=== PATIENT | female | born 1995 | race Caucasian/White ===

== ENCOUNTER → 2016-07-12 | Outpatient (CLI) | payer BC ==
[~2016-07-12] MED LIST: BCPILLS PO; Biotin PO; MAGIC1 PO; [UNRECOGNIZED DRUG - REMARK]
--- NOTE | 2016-07-12 09:44 | DIAGNOSTIC IMAGING REPORT ---
RENAL ULTRASOUND HISTORY: Pyelonephritis RECURRENT UTI,TUBULO NEPHRITIS COMPARISON: None. FINDINGS: Right kidney: Maximum dimension 10.7 cm. No evidence for hydronephrosis. Normal corticomedullary differentiation and cortical thickness. Left kidney: Maximum dimension 11 cm. No evidence for hydronephrosis. 4 mm nonobstructing lower pole calcification Normal corticomedullary differentiation and cortical thickness. Bladder: No bladder wall thickening. The bilateral ureteral jets were identified. IMPRESSION: 1. 4 mm nonobstructing cortical calcification lower pole left kidney. 2. Otherwise normal study Electronically signed by: Etienne Patel M.D. 07/12/2016 9:43 AM Dictated Date/Time: 07/12/2016 9:40 AM
== END | disposition home or self-care (01) ==
LOC: C.ULTR 09:12
PROVIDERS: ATTEND Family Medicine
DX: N39.0 Urinary tract infection, site not specified (principal); N12 Tubulo-interstitial nephritis, not specified as acute or chronic; N20.0 Calculus of kidney

== ENCOUNTER → 2017-08-21 | Outpatient (CLI) | payer OTHER ==
--- NOTE | 2017-08-21 11:23 | DIAGNOSTIC IMAGING REPORT ---
L-SPINE MIN 4 VIEWS ROUTINE CLINICAL HISTORY: Back pain COMPARISON STUDY: 05/08/2011 FINDINGS: There is thoracolumbar spinal rodding. There are no acute fractures. There is minimal retrolisthesis of L3 on L4, unchanged the prior study. There are mild multilevel degenerative changes. No destructive lesions are evident. There is a thoracolumbar levoscoliosis. There is a bony defect involving the posterior elements at the L5 level. IMPRESSION: 1. Postsurgical changes similar to the preceding study. Levoscoliosis. No acute fractures. Electronically signed by: Nikolas Wang M.D. 08/21/2017 11:22 AM Dictated Date/Time: 08/21/2017 11:20 AM
--- NOTE | 2017-08-21 11:25 | DIAGNOSTIC IMAGING REPORT ---
THORACIC SPINE 3 VIEWS ROUTINE CLINICAL HISTORY: 21 years-old Female presenting with THORACIC BACK PAIN. TECHNIQUE: 3 views of the thoracic spine were obtained. COMPARISON: 08/17/2009. FINDINGS: Redemonstration of extensive posterior fusion hardware of the thoracolumbar spine extending from T5 inferiorly. Mild S-shaped scoliotic curvature of the thoracolumbar spine. This is unchanged from prior. Otherwise normal thoracic kyphosis. Vertebral bodies maintain normal height. Intervertebral discs heights preserved. The upper thoracic spine is not well visualized. No hardware complication is apparent. IMPRESSION: No change in alignment with extensive posterior fusion of the thoracic spine with S-shaped scoliotic curvature. Electronically signed by: Landon Meyer M.D. 08/21/2017 11:23 AM Dictated Date/Time: 08/21/2017 11:21 AM
== END | disposition home or self-care (01) ==
LOC: C.RAD 10:39
PROVIDERS: ATTEND Family Medicine
DX: M54.6 Pain in thoracic spine (principal); M41.85 Other forms of scoliosis, thoracolumbar region